=== PATIENT | female | born 1990 | race Caucasian/White ===

== ENCOUNTER 2017-01-25 07:20 | Emergency (ER) | payer OTHER ==
[~2017-01-25] VITALS: Ht 160 cm; Wt 74.6 kg
[~2017-01-25 07:20] MED LIST: CELEXA10 MG PO; DESYREL 50MG50 MG PO; NORCO 325 MG-51 TAB PO; VALIUM 5MG T5 MG/TAB PO
[2017-01-25 07:22] VITALS: TEMP 97.8
[2017-01-25 08:14] LABS: BASO % 0.2 % (0.0-2.0); EOS # 0.1 (0.0-0.7); EOS % 0.6 % (0-4.0); GRAN # 11.3 (1.4-6.5); HEMATOCRIT 44.3 % (37.0-47.0); HEMOGLOBIN 15.1 g/dl (12.5-16.0); LYMPH # 0.6 (1.2-3.4); LYMPH % 4.8 % (20.0-51.0); MEAN CELL VOLUME 90 fl (80.0-100.0); MEAN CORPUSCULAR HEMOGLOBIN 31 pg (27.0-31.0); MEAN CORPUSCULAR HGB CONC 34 g/dl (33.0-37.0); MEAN PLATELET VOLUME 9.8 fl (7.4-10.4); MONO # 0.5 (0.1-0.6); MONO % 4.1 % (1.7-9.3); PLATELET COUNT 234 K/mm3 (130-400); REDCELL DISTRIBUTION WIDTH-CV 12.8 % (11.5-14.5); WHITE BLOOD COUNT 12.5 K/mm3 (4.8-10.8)
[2017-01-25 08:28] LABS: ADJUSTED CALCIUM 9.1 mg/dL (8.4-10.2); ALANINE AMINOTRANSFERASE 16 U/L (9-52); ALBUMIN 3.8 gm/dL (3.5-5.0); ALKALINE PHOSPHATASE 85 U/L (50-136); ANION GAP 9 mmol/L (7-16); BILIRUBIN,TOTAL 0.8 mg/dL (0.0-1.0); BLOOD UREA NITROGEN 16 mg/dL (7-17); C-REACTIVE PROTEIN < 0.5 mg/dL (0.0-0.9); CALCIUM 8.9 mg/dL (8.4-10.2); CARBON DIOXIDE 22 mmol/L (22-30); CHLORIDE 104 mmol/L (98-107); CREATININE, serum 0.75 mg/dL (0.52-1.25); GLUCOSE 116 mg/dL (74-106); LIPASE 88 U/L (23-300); POTASSIUM 4.3 mmol/L (3.4-5.0); SODIUM 135 mmol/L (137-145); TOTAL PROTEIN 6.6 gm/dL (6.4-8.2)
[2017-01-25] MEDS ORDERED: REGLAN 10MG10 MG/TAB PO (11:14)
[2017-01-25 11:55] VITALS: BP 88/42; PULSE 93
[2017-01-25] MEDS ORDERED: ULTRAM 50MG TAB50 MG PO (22:57)
[2017-01-25] MEDS ORDERED: ZOFRAN8 MG PO (22:57)
== END 2017-01-25 11:55 | disposition home or self-care (01) ==
LOC: COL.ER 07:20
PROVIDERS: Nurse Practitioner
DX: K52.9 Noninfective gastroenteritis and colitis, unspecified (principal)
CPT/HCPCS: J1885; J2550; J3010; J7030; Q9967

== ENCOUNTER 2017-01-25 22:00 | Emergency (ER) | payer OTHER ==
[~2017-01-25] VITALS: Ht 160 cm; Wt 72.7 kg
[~2017-01-25 22:00] MED LIST changes: +REGLAN 10MG10 MG/TAB PO
[2017-01-25 22:02] VITALS: BP 103/62; TEMP 98.4
[2017-01-25 22:54] LABS: BASO % 0.3 % (0.0-2.0); EOS # 0.1 (0.0-0.7); EOS % 0.9 % (0-4.0); GRAN # 5.3 (1.4-6.5); LYMPH # 0.6 (1.2-3.4); LYMPH % 9.4 % (20.0-51.0); MEAN CELL VOLUME 91 fl (80.0-100.0); MEAN CORPUSCULAR HGB CONC 34 g/dl (33.0-37.0); MONO # 0.4 (0.1-0.6); MONO % 6.1 % (1.7-9.3); PLATELET COUNT 159 K/mm3 (130-400); RED BLOOD COUNT 3.84 M/mm3 (4.10-5.30); REDCELL DISTRIBUTION WIDTH-CV 12.9 % (11.5-14.5); WHITE BLOOD COUNT 6.4 K/mm3 (4.8-10.8)
[2017-01-25] MEDS ORDERED: ULTRAM 50MG TAB50 MG PO (22:57)
[2017-01-25] MEDS ORDERED: ZOFRAN8 MG PO (22:57)
[2017-01-25 23:04] LABS: ADJUSTED CALCIUM 8.4 mg/dL (8.4-10.2); ALBUMIN 2.9 gm/dL (3.5-5.0); BILIRUBIN,TOTAL 0.8 mg/dL (0.0-1.0); CALCIUM 7.5 mg/dL (8.4-10.2); CREATININE, serum 0.73 mg/dL (0.52-1.25); POTASSIUM 3.3 mmol/L (3.4-5.0); TOTAL PROTEIN 5.3 gm/dL (6.4-8.2)
[2017-01-25 23:05] LABS: HEMATOCRIT 34.9 % (37.0-47.0); MEAN CORPUSCULAR HEMOGLOBIN 31 pg (27.0-31.0)
[2017-01-25 23:48] LABS: PH 6 (5-8); SQUAMOUS EPITHELIAL 0-2 /hpf; URINE APPEARANCE Clear; URINE BACTERIA Rare /hpf; URINE BILIRUBIN Negative (NEGATIVE); URINE BLOOD Negative (NEGATIVE); URINE COLOR Straw; URINE GLUCOSE Negative (NEGATIVE); URINE KETONE Negative (NEGATIVE); URINE RBC 0-2 /hpf; URINE UROBILINOGEN Negative (NEGATIVE); URINE WBC 0-2 /hpf
[2017-01-26 00:10] VITALS: PULSE 86
== END 2017-01-26 00:12 | disposition home or self-care (01) ==
LOC: COL.ER 22:00
PROVIDERS: Emergency Medicine
DX: E86.0 Dehydration (principal); R11.10 Vomiting, unspecified; R10.84 Generalized abdominal pain; R19.7 Diarrhea, unspecified; F17.210 Nicotine dependence, cigarettes, uncomplicated
CPT/HCPCS: J1170; J1885; J2405; J2765; J7030

== ENCOUNTER → 2017-06-11 | Outpatient (CLI) | payer OTHER ==
[~2017-06-11] MED LIST changes: +ULTRAM 50MG TAB50 MG PO; +ZOFRAN8 MG PO
== END ==
LOC: COL.RAD 13:44
DX: N85.8 Other specified noninflammatory disorders of uterus (principal)

== ENCOUNTER 2018-02-28 10:51 | Day surgery (SDC) | payer OTHER ==
[~2018-02-28] VITALS: Ht 160 cm; Wt 87.3 kg
[2018-02-28] VITALS (9 sets, daily range): BP systolic 108–119; BP diastolic 57–72; PULSE 62–93; TEMP 97.7–98.4
[~2018-02-28 10:51] MED LIST changes: +CELEXA 20MG20 MG/TAB PO; -CELEXA10 MG PO
[2018-02-28] MEDS ORDERED: KLONOPIN 1MG1 MG PO (11:52)
[2018-02-28] MEDS ORDERED: DOXYCYCLINE HY100 MG PO (11:53)
[2018-02-28] MEDS ORDERED: MOTRIN 800800 MG/TAB PO (11:56)
[2018-02-28] MEDS ORDERED: PERCOCET 325 MG1 TA2 PO (11:56)
[2018-02-28 18:10] LABS: HIV 1/2 Antibodies Non-Reactive; HIV-1p24 Antigen Non-Reactive
[2018-02-28 23:13] LABS: HEPATITIS B SURFACE ANTIGEN Negative (()); HEPATITIS C VIRUS ANTIBODY Negative (())
== END 2018-02-28 20:10 | disposition home or self-care (01) ==
LOC: SDCO 10:51 → OB 15:19 → SDCO 20:10
PROVIDERS: Obstetrics & Gynecology
DX: N92.1 Excessive and frequent menstruation with irregular cycle (principal); E55.9 Vitamin D deficiency, unspecified; Z79.899 Other long term (current) drug therapy
CPT/HCPCS: OP; A4314; C1713; J0690; J1100; J1885; J2175; J2250; J2270; J2405; J3010; J7120